=== PATIENT | female | born 1965 | race Caucasian/White ===

== ENCOUNTER → 2019-05-22 | Outpatient (CLI) | payer OTHER ==
[~2019-05-22] MED LIST: ERYT.5TO LEFTEYE; ESTR2 PO
== END | disposition home or self-care (01) ==
LOC: LAB 17:42 → LAB EV 17:42 → LAB SHORT 17:42
DX: N39.0 Urinary tract infection, site not specified (principal)
CPT/HCPCS: 87077; 87086; 87186

== ENCOUNTER → 2019-08-26 | Outpatient (CLI) | payer OTHER | END | disposition home or self-care (01) | LOC: LAB EV 14:52 → LAB SHORT 14:52 | DX: N39.0 Urinary tract infection, site not specified (principal) | CPT/HCPCS: 87077; 87086; 87186 ==

== ENCOUNTER → 2021-05-26 | Outpatient (CLI) | payer OTHER ==
[2021-05-26 19:37] LABS: BASOPHILS ABSOLUTE AUTO 0.03 K/mm3 (0.00-0.23); BASOPHILS PERCENT AUTO 1 % (0-2); EOSINOPHILS ABSOLUTE AUTO 0.16 K/mm3 (0.00-0.68); EOSINOPHILS PERCENT AUTO 3 % (0-6); Hematocrit 40.8 % (33.0-51.0); Hemoglobin 13.9 g/dL (11.5-16.0); IMMATURE GRAN ABSOLUTE AUTO 0.01 K/mm3 (0.00-0.10); IMMATURE GRAN PERCENT AUTO 0 % (0-1); LYMPHOCYTES ABSOLUTE AUTO 1.42 K/mm3 (0.84-5.20); LYMPHOCYTES PERCENT AUTO 30 % (21-46); MONOCYTES ABSOLUTE AUTO 0.28 K/mm3 (0.16-1.47); MONOCYTES PERCENT AUTO 6 % (4-13); Mean Corpuscular HGB 28.7 pg (26.0-34.0); Mean Corpuscular HGB Conc 34.1 g/dL (31.5-36.5); Mean Corpuscular Volume 84 fL (80-100); Mean Platelet Volume 9.8 fL (9.1-12.4); NEUTROPHILS ABSOLUTE AUTO 2.86 K/mm3 (1.96-9.15); NEUTROPHILS PERCENT AUTO 60 % (41-73); Platelet Count 246 K/mm3 (150-400); RDW Coefficient Variation 13.6 % (11.7-14.2); RDW Standard Deviation 41.8 fL (35.1-46.3); Red Blood Cell Count 4.85 M/mm3 (3.80-5.20); White Blood Cell Count 4.76 K/mm3 (4.00-11.30)
[2021-05-26 19:56] LABS: Alanine Aminotransfer (ALT/SGP 22 U/L (12-78); Albumin, Blood 3.8 g/dL (3.4-5.0); Albumin/Globulin Ratio 1.5 (0.8-1.8); Alk Phos 66 U/L (50-136); Anion Gap 6 mmol/L (6-16); Aspartate Aminotrans (AST/SGOT 15 U/L (12-37); Bilirubin, Total 0.6 mg/dL (0.1-1.0); Blood Urea Nitrogen 15 mg/dL (8-24); Bun/Creatinine Ratio 16.8 (12.0-20.0); CO2, Blood 23 mmol/L (21-32); Calcium, Blood 8.1 mg/dL (8.5-10.1); Chloride, Blood 115 mmol/L (98-108); Cholesterol 232 mg/dL (50-200); Globulin, Blood 2.6 g/dL (2.2-4.0); Glomerular Filtration Rate >60 (60-); Glucose, Blood 95 mg/dL (70-99); HDL Cholesterol 46 mg/dL (>39); LDL/HDL RATIO 3.4; Low Density Lipoprotein Chol 155 mg/dL (0-110); Potassium, Blood 3.8 mmol/L (3.5-5.5); Sodium, Blood 144 mmol/L (136-145); Total Protein, Blood 6.4 g/dL (6.4-8.2); Triglycerides 156 mg/dL (30-160); Very Low Density Lipoprot Chol 31 mg/dL (6-32)
== END ==
LOC: LAB 17:51 → LAB SHORT 17:51
PROVIDERS: Nurse Practitioner Family
DX: Z13.6 Encounter for screening for cardiovascular disorders (principal); Z13.29 Encounter for screening for other suspected endocrine disorder; Z13.0 Encounter for screening for diseases of the blood and blood-forming organs and certain disorders involving the immune mechanism; Z13.228 Encounter for screening for other metabolic disorders
CPT/HCPCS: 80053; 80061; 84443; 85025

== ENCOUNTER 2022-05-28 12:41 | Inpatient (IN) | payer OTHER ==
[~2022-05-28] VITALS: Ht 162.6 cm; Wt 75.2 kg
[~2022-05-28 12:41] MED LIST changes: +METPRE4DP PO
[2022-05-28 13:27] LABS: Albumin, Blood 3.2 g/dL (3.4-5.0); Bilirubin, Total 0.7 mg/dL (0.1-1.0); Bun/Creatinine Ratio 15.4 (12.0-20.0); Calcium, Blood 8.6 mg/dL (8.5-10.1); Creatinine, Blood 0.78 mg/dL (0.40-1.00); Globulin, Blood 3.3 g/dL (2.2-4.0); Potassium, Blood 3.3 mmol/L (3.5-5.5); Total Protein, Blood 6.5 g/dL (6.4-8.2)
[2022-05-28 13:35] LABS: BASOPHILS ABSOLUTE AUTO 0.04 K/mm3 (0.00-0.23); BASOPHILS PERCENT AUTO 0 % (0-2); EOSINOPHILS ABSOLUTE AUTO 0.12 K/mm3 (0.00-0.68); EOSINOPHILS PERCENT AUTO 1 % (0-6); Hematocrit 40.4 % (33.0-51.0); Hemoglobin 13.5 g/dL (11.5-16.0); IMMATURE GRAN ABSOLUTE AUTO 0.02 K/mm3 (0.00-0.10); IMMATURE GRAN PERCENT AUTO 0 % (0-1); LYMPHOCYTES ABSOLUTE AUTO 1.39 K/mm3 (0.84-5.20); LYMPHOCYTES PERCENT AUTO 13 % (21-46); MONOCYTES PERCENT AUTO 7 % (4-13); Mean Corpuscular HGB 27.4 pg (26.0-34.0); Mean Corpuscular HGB Conc 33.4 g/dL (31.5-36.5); Mean Corpuscular Volume 82 fL (80-100); Mean Platelet Volume 10.1 fL (9.1-12.4); NEUTROPHILS ABSOLUTE AUTO 8.45 K/mm3 (1.96-9.15); NEUTROPHILS PERCENT AUTO 79 % (41-73); Platelet Count 447 K/mm3 (150-400); RDW Coefficient Variation 13.4 % (11.7-14.2); RDW Standard Deviation 40.2 fL (35.1-46.3); Red Blood Cell Count 4.92 M/mm3 (3.80-5.20); White Blood Cell Count 10.72 K/mm3 (4.00-11.30)
[2022-05-28 15:47] LABS: Source, Urine Clean Catch
[2022-05-28 15:57] LABS: Bilirubin, Urine Neg (Neg); Blood, Urine 2+ (Neg); Color, Urine Yellow (P-Yellow); Glucose Qualitative, Urine Neg (Neg); Ketones, Urine 3+ (Neg); Leukocyte Esterase, Urine Neg (Neg); Nitrite, Urine Neg (Neg); Protein, Urine 2+ (Neg); Urobilinogen, Urine 1+ (Normal)
[2022-05-28 16:21] LABS: Amorphous Light (0-Heavy); Appearance, Urine Hazy (Clear); Bacteria Mod /hpf; Mucus Light (0-Heavy); Red Blood Cells, Urine 0-2 /hpf (0-2); Squamous Epithelial Cells Rare /hpf (Few); White Blood Cells, Urine 0-2 /hpf (0-5)
[2022-05-28 17:14] LABS: CPK Creatine Kinase 57 U/L (26-193)
[2022-05-28 17:23] LABS: Creatine Kinase MB <1.0 ng/mL (0.0-3.6); Creatine Kinase MB Index Unable to Calculate (0.0-4.0)
[2022-05-29 04:58] LABS: Calcium, Blood 8.9 mg/dL (8.5-10.1); Creatinine, Blood 0.79 mg/dL (0.40-1.00); Potassium, Blood 3.3 mmol/L (3.5-5.5)
--- NOTE | 2022-05-29 06:12 | NUR ---
END OF SHIFT MAINTAINED B/P OVERNIGHT, NO JVD, PT IRRITABLE AND WITHDRAWN BUT OTHERWISE NO ISSUES, NPO SINCE MIDNIGHT
--- NOTE | 2022-05-29 09:03 | NUR ---
0800 ASSESSMENT PT RESTING IN BED. ASSESSMENT CHARTED. PT AWAITING PROCEDURE AND IS NPO AT THIS TIME. ADDITIONAL QUESTIONS ANSWERED ABOUT PROCEDURE AND PLAN OF CARE FOR THE DAY. PT IS INDEPENDENT IN ROOM. HAT IN BATHROOM EMPTIED OF 500ML OF CLEAR YELLOW URINE. PT DENIES ANY ADDITIONAL NEEDS AT THIS TIME BUT IS REQUESTING REST ABLE. WILL WORK WITH OTHER STAFF TO GROUP CARE. CALL LIGHT IN REACH AND PT ENCOURAGED TO USE NEEDED.
--- NOTE | 2022-05-29 11:55 | NUR ---
PROCEDURE DR. ABRAMS TO BEDSIDE TO EVALUATE PT. ECHO COMPLETED AT BEDSIDE. DR. ABRAMS RETURNS TO COMPLETE CONSENT FOR PERICARDIALCENTISIS. PT VERBALIZES UNDERSTANDING OF TEACHING, ADDITIONAL QUESTIONS ADDRESSED BY PROVIDER, AND CONSENT SIGNED. HEART CENTER STAFF TO ROOM AND PT TO [facility] FOR PROCEDURE AT 1155.
[2022-05-29 13:33] LABS: Automated BF RBC Count 1.306 M/mm3 (0-0); Automated BF WBC Count 1.415 K/mm3 (0-999); RBC Count, Body Fluid 1306000 /mm3 (0-0)
[2022-05-29 13:41] LABS: Body Fluid WBC Count 1415 /mm3 (0-999)
[2022-05-29 13:48] LABS: Glucose, Body Fluid 81 mg/dL; Lactate Dehydrogenase, Body Fl 312 U/L; Protein, Body Fluid 4.8 g/dL
--- NOTE | 2022-05-29 14:00 | NUR ---
RETURN FROM PROCEDURE PT RETURNS FROM [facility] VIA BED. BEDSIDE REPORT FROM HEART CENTER STAFF. ADDITIONAL EDUCATION PROVIDED TO PT AND FAMILY UPON RETURN TO ROOM. PT WITH 1500ML OUT DURING PERICALCENTESIS AND WITH DRAIN IN PLACE. VS MONITORING IN PLACE. PT REPORTS IMPROVEMENT IN SOB, BUT DOES HAVE SOME MINOR PAIN IN CHEST WHERE DRAIN IS. WILL CONTINUE TO MONITOR CLOSELY.
[2022-05-29 14:37] LABS: pH, Body Fluid 7.9
[2022-05-29 14:55] LABS: Total Cell Count, Body Fluid 100
[2022-05-29 15:00] LABS: Appearance, Body Fluid Bloody (Clear); Color, Body Fluid Red (None-Yellow)
--- NOTE | 2022-05-29 17:57 | NUR ---
SHIFT SUMMARY PT CONTINUES TO DO WELL AFTER PROCEDURE. REPORTS IMPROVEMENT OF SOB. PT ABLE TO GET UP TO RESTROOM TO CLEANSE WITH WASH CLOTH AND SINK. LINEN AND CLOTHES CHANGED. PT WITH NO ADDITIONAL NEEDS. CALL LIGHT IN REACH.
--- NOTE | 2022-05-30 04:54 | NUR ---
SHIFT SUMMARY PT A&OX4, IND IN THE ROOM, HAS BEEN SR/ST 80'S-100'S ON TELE, AND IS ON 1-3L NC TO MAINTIAN SPO2>90%. THE PT HAS PAIN IN HER LUQ AT THE DRAIN SITE AND IT WORSENS WHEN SHE TAKES DEEP BREATHS. SHE HAS BEEN SHALLOW BREATHING. TO HELP WITH THE PAIN SHE HAS BEEN MEDICATED W/ TYLONAL PRN. PT REQUESTED AT THE BEGINNING OF THE SHIFT TO MINIMIZE ROUNDING AND LET HER SLEEP. SHE SLEPT MOST OF THE SHIFT, CALLS APPROPRIATELY, AND MAKES HER NEEDS KNOWN. HER BED IS IN A LOW POSITION AND HER CALL LIGHT IS IN REACH. WILL CONTINUE OT MONITOR UNTIL SHIFT REPORT IS GIVEN TO THE ONCOMING SHIFT RN. SEE NOTES FOR ANY UPDATES.
[2022-05-30 09:10] LABS: COMPLEMENT C3, SERUM 133 mg/dL (82-167)
[2022-05-30 09:35] LABS: Hematocrit 37.1 % (33.0-51.0); Hemoglobin 12.5 g/dL (11.5-16.0)
[2022-05-30 09:59] LABS: Mean Platelet Volume 10.1 fL (9.1-12.4); Platelet Count 312 K/mm3 (150-400)
[2022-05-30 18:11] LABS: ANTI-DSDNA ANTIBODIES 1 IU/mL (0-9); RNP ANTIBODIES <0.2 AI (0.0-0.9); SJOGREN'S ANTI-SS-A <0.2 AI (0.0-0.9); SJOGREN'S ANTI-SS-B <0.2 AI (0.0-0.9); SMITH ANTIBODIES <0.2 AI (0.0-0.9)
--- NOTE | 2022-05-30 18:36 | NUR ---
PERCARDIAL DRAIN REMOVED DURING THIS SHIFT WHEN CONFIRMED FROM ECHO AND DR ABRAMS THAT PERCARDIAL EFFUSION HAS DRAINED. PT WAS MEDCIATED THIS AM FOR REPORTED 10/10 PAIN, TREATED X1 WITH DILAUDID AND REQUIRED FOR FURTHER PAIN MEDICATION FOR THE DAY. PT STS ALSO THAT PAIN IS GREATLY IMPROVED WITH REMOVING THE DRAIN. PT IS A/O X4. REPORTS GOOD IMPROVEMENT IN WORK OF BREATHING. H&H DRAWN THIS SHIFT WHEN NOTED THAT ONE HAD NOT BEEN DRAWN WITH ROUTINE LABS THIS AM, H&H AND PLATELETS WNL. PT INDEPENDANT TO BATHROOM, DOES REPORT SOME INCONTENENCE WITH COUGHING, PADS PROVIDED. DENIES CP OR SOB. PT REMOVED FROM NASAL CANNULA ONCE PAIN WAS WELL CONTROLLED.
--- NOTE | 2022-05-31 05:26 | NUR ---
SHIFT SUMMARY PT A&OX4, IND IN THE ROOM, HAD A SHOWER THIS SHIFT, HER DRAIN SITE WAS REDRESSED W. A TEGADERM, AND SHE HAS BEEN SLEEPING MOST OF THE NIGHT. THE PT DESATURATED AGAIN DURING THE NIGHT TO 86% AND WAS PLACED BACK ON 1-3L NC TO MAINTAIN SP02 >90%. SHE DENIES SOB, ANGINA, AND PAIN. HER BED IS IN LOW, CALL LIGHT IS IN REACH, AND PT CALLS APPROPRIATELY. I WILL CONTINUE TO MONITOR UNTIL SHIFT REPORT IS GIVEN TO THE ONCOMING SHIFT RN. SEE NOTES FOR ANY UPDATES.
[2022-05-31 05:30] LABS: BASOPHILS ABSOLUTE AUTO 0.03 K/mm3 (0.00-0.23); BASOPHILS PERCENT AUTO 0 % (0-2); EOSINOPHILS ABSOLUTE AUTO 0.17 K/mm3 (0.00-0.68); EOSINOPHILS PERCENT AUTO 2 % (0-6); Hematocrit 38.5 % (33.0-51.0); Hemoglobin 12.6 g/dL (11.5-16.0); IMMATURE GRAN ABSOLUTE AUTO 0.01 K/mm3 (0.00-0.10); IMMATURE GRAN PERCENT AUTO 0 % (0-1); LYMPHOCYTES ABSOLUTE AUTO 1.33 K/mm3 (0.84-5.20); LYMPHOCYTES PERCENT AUTO 19 % (21-46); MONOCYTES ABSOLUTE AUTO 0.59 K/mm3 (0.16-1.47); MONOCYTES PERCENT AUTO 9 % (4-13); Mean Corpuscular HGB 26.7 pg (26.0-34.0); Mean Corpuscular HGB Conc 32.7 g/dL (31.5-36.5); Mean Corpuscular Volume 82 fL (80-100); Mean Platelet Volume 10.3 fL (9.1-12.4); NEUTROPHILS ABSOLUTE AUTO 4.81 K/mm3 (1.96-9.15); NEUTROPHILS PERCENT AUTO 69 % (41-73); Platelet Count 296 K/mm3 (150-400); RDW Coefficient Variation 13.2 % (11.7-14.2); RDW Standard Deviation 38.7 fL (35.1-46.3); Red Blood Cell Count 4.72 M/mm3 (3.80-5.20); White Blood Cell Count 6.94 K/mm3 (4.00-11.30)
[2022-05-31 06:14] LABS: Bun/Creatinine Ratio 14.2 (12.0-20.0); Calcium, Blood 7.9 mg/dL (8.5-10.1); Creatinine, Blood 0.77 mg/dL (0.40-1.00)
--- NOTE | 2022-05-31 09:10 | NUR ---
NURSING PCU DAYSHIFT: Assumed care of pt at approx 0700. A/O, very pleasant, cooperative w/care. Denies any pain/discomfort at rest, GODFREY during NOC treated w/tylenol. Ambulates independently and w/o difficulty. Skin intact, sterile dressing in place to L side r/t recent pericardial drain removal. Tele in place, NSR, no c/o CP/pressure, SBP 103, no noted edema. L/S cta t/o, O2 sat mid 90's on RA while awake, denies dyspnea, occ dry/LICENSED MASTER SOCIAL WORKER cough, continuous O2 monitoring in place. Abd SNT, BT+, voiding w/o difficulty per pt. PIV x1 s/l. No s/s of acute distress this a.m. Pt anticipating discharge home, awaiting rounding from PMD. Friend at bedside this a.m. for visit. Pt appears to be in good spirits. Denies any current needs or questions regarding plan of care, call light in reach, cont to monitor for changes.
[2022-05-31] MEDS ORDERED: COLCHICINE0.6 MG PO (12:31)
--- NOTE | 2022-05-31 12:37 | NUR ---
NURSING PCU DISCHARGE SUMMARY: No significant changes noted t/o the morning. Seen by PMD, discharge home d/o received. Pt verbalized understanding of all written and verbal discharge insructions. PIV dc'd w/cath intact. Rx's faxed to [facility] per pt request. No s/s of acute distress at this time. Pt request to ambulate independently from unit at time of discharge. Cont to monitor until dc completed.
== END 2022-05-31 12:59 | disposition home or self-care (01) | DRG 314 ==
LOC: ER 12:41 → PCU 12:42
PROVIDERS: Emergency Medicine; Internal Medicine; Internal Medicine Cardiovascular Disease; Physician Assistant; ADMIT Internal Medicine
PROC: 0W9D3ZZ Drainage of Pericardial Cavity, Percutaneous Approach (ICD-10-PCS; principal; 2022-05-29)
DX: I31.39 Other pericardial effusion (noninflammatory) (principal); J96.00 Acute respiratory failure, unspecified whether with hypoxia or hypercapnia; J90 Pleural effusion, not elsewhere classified; I31.4 Cardiac tamponade; E04.1 Nontoxic single thyroid nodule; R59.0 Localized enlarged lymph nodes; E87.6 Hypokalemia; R10.13 Epigastric pain; I27.21 Secondary pulmonary arterial hypertension; Z80.8 Family history of malignant neoplasm of other organs or systems; Z90.710 Acquired absence of both cervix and uterus; Z98.890 Other specified postprocedural states; Z85.42 Personal history of malignant neoplasm of other parts of uterus; Z79.899 Other long term (current) drug therapy
CPT/HCPCS: 33016; 36415; 71045; 71260; 76536; 76937; 80048; 80053; 81001; 82550; 82553; 82945; 83615; 83690; 83735; 83880; 83986; 84157; 84439; 84443; 84484; 85014; 85018; 85025; 85049; 85651; 86160; 86225; 86235; 87070; 87075; 87086; 87205; 87206; 88108; 88305; 88341; 88342; 89051; 93005; 93010; 93306; 93308; 93321; 96361; 96374; 99152; 99153; 99285-25; A9270; C1729; C1894; G0378; J0690; J1644; J1940; J2250; J3010; J7030; J7040; J7120; Q9967

== ENCOUNTER → 2022-06-02 | Outpatient (CLI) | payer OTHER ==
[~2022-06-02] MED LIST changes: +COLCHICINE0.6 MG PO
[2022-06-02 19:01] LABS: BASOPHILS ABSOLUTE AUTO 0.03 K/mm3 (0.00-0.23); BASOPHILS PERCENT AUTO 1 % (0-2); EOSINOPHILS ABSOLUTE AUTO 0.15 K/mm3 (0.00-0.68); EOSINOPHILS PERCENT AUTO 3 % (0-6); Hematocrit 42.9 % (33.0-51.0); Hemoglobin 14.2 g/dL (11.5-16.0); IMMATURE GRAN ABSOLUTE AUTO 0.01 K/mm3 (0.00-0.10); IMMATURE GRAN PERCENT AUTO 0 % (0-1); LYMPHOCYTES ABSOLUTE AUTO 1.33 K/mm3 (0.84-5.20); LYMPHOCYTES PERCENT AUTO 22 % (21-46); MONOCYTES ABSOLUTE AUTO 0.42 K/mm3 (0.16-1.47); MONOCYTES PERCENT AUTO 7 % (4-13); Mean Corpuscular HGB 26.6 pg (26.0-34.0); Mean Corpuscular HGB Conc 33.1 g/dL (31.5-36.5); Mean Corpuscular Volume 81 fL (80-100); Mean Platelet Volume 10.2 fL (9.1-12.4); NEUTROPHILS ABSOLUTE AUTO 3.99 K/mm3 (1.96-9.15); NEUTROPHILS PERCENT AUTO 67 % (41-73); Platelet Count 409 K/mm3 (150-400); RDW Coefficient Variation 13.2 % (11.7-14.2); Red Blood Cell Count 5.33 M/mm3 (3.80-5.20); White Blood Cell Count 5.93 K/mm3 (4.00-11.30)
[2022-06-02 19:51] LABS: Albumin/Globulin Ratio 0.8 (0.8-1.8); Bilirubin, Total 0.5 mg/dL (0.1-1.0); Bun/Creatinine Ratio 11.9 (12.0-20.0); Calcium, Blood 8.5 mg/dL (8.5-10.1); Creatinine, Blood 0.67 mg/dL (0.40-1.00); Globulin, Blood 3.6 g/dL (2.2-4.0); Potassium, Blood 3.5 mmol/L (3.5-5.5); Total Protein, Blood 6.6 g/dL (6.4-8.2)
== END | disposition home or self-care (01) ==
LOC: LAB SHORT 17:57 → LAB 17:57
PROVIDERS: Nurse Practitioner Family
DX: C80.1 Malignant (primary) neoplasm, unspecified (principal); I31.31 Malignant pericardial effusion in diseases classified elsewhere; E87.6 Hypokalemia; R06.00 Dyspnea, unspecified
CPT/HCPCS: 80053; 85025

== ENCOUNTER 2022-06-16 02:27 | Inpatient (IN) | payer OTHER ==
[~2022-06-16] VITALS: Ht 167.6 cm; Wt 74.0 kg
[2022-06-16 02:54] LABS: BASOPHILS ABSOLUTE AUTO 0.06 K/mm3 (0.00-0.23); BASOPHILS PERCENT AUTO 1 % (0-2); EOSINOPHILS ABSOLUTE AUTO 0.16 K/mm3 (0.00-0.68); EOSINOPHILS PERCENT AUTO 2 % (0-6); Hematocrit 39.4 % (33.0-51.0); Hemoglobin 12.9 g/dL (11.5-16.0); IMMATURE GRAN ABSOLUTE AUTO 0.02 K/mm3 (0.00-0.10); IMMATURE GRAN PERCENT AUTO 0 % (0-1); LYMPHOCYTES ABSOLUTE AUTO 2.02 K/mm3 (0.84-5.20); LYMPHOCYTES PERCENT AUTO 23 % (21-46); MONOCYTES ABSOLUTE AUTO 0.57 K/mm3 (0.16-1.47); MONOCYTES PERCENT AUTO 7 % (4-13); Mean Corpuscular HGB 26.1 pg (26.0-34.0); Mean Corpuscular HGB Conc 32.7 g/dL (31.5-36.5); Mean Corpuscular Volume 80 fL (80-100); NEUTROPHILS ABSOLUTE AUTO 5.84 K/mm3 (1.96-9.15); NEUTROPHILS PERCENT AUTO 67 % (41-73); Platelet Count 303 K/mm3 (150-400); RDW Coefficient Variation 13.3 % (11.7-14.2); RDW Standard Deviation 37.6 fL (35.1-46.3); Red Blood Cell Count 4.95 M/mm3 (3.80-5.20); White Blood Cell Count 8.67 K/mm3 (4.00-11.30)
[2022-06-16 03:13] LABS: Albumin, Blood 3.5 g/dL (3.4-5.0); Albumin/Globulin Ratio 1.2 (0.8-1.8); Bilirubin, Total 0.7 mg/dL (0.1-1.0); Bun/Creatinine Ratio 15.2 (12.0-20.0); C-REACTIVE PROTEIN, EXT RANGE 3.41 mg/dL (0.000-0.300); Calcium, Blood 8.9 mg/dL (8.5-10.1); Creatinine, Blood 0.73 mg/dL (0.40-1.00); Potassium, Blood 3.6 mmol/L (3.5-5.5); Total Protein, Blood 6.5 g/dL (6.4-8.2)
[2022-06-16 03:54] LABS: Influenza A, PCR NEGATIVE (NEGATIVE); Influenza B, PCR NEGATIVE (NEGATIVE); Resp Syncytial Virus, PCR NEGATIVE (NEGATIVE); SARS-Cov-2 (COVID-19) PCR, MMC NEGATIVE (NEGATIVE)
[2022-06-16] MEDS ORDERED: ESTRADIOL1 M1 (06:13)
--- NOTE | 2022-06-16 06:48 | NUR ---
ADMISSION PT ADMITTED TO PCU 14, SHE IS A&O X4, ON RA, SPO2 >93%, SINUS TACH @ 113 BMP, PT WALKED FROM THE ER BED IN HALLWAY TO HER BED PER HER REQUEST, GAIT STEADY, SBA, SOB NOTED WITH ACTIVITY. INTIAL ADMISSION COMPLETED, TELE BOX IN PLACE, CALL LIGHT & EMESIS BAG PROVIDED. WCTM & REPORT TO ONCOMING RN.
[2022-06-16 07:23] LABS: BASOPHILS ABSOLUTE AUTO 0.04 K/mm3 (0.00-0.23); BASOPHILS PERCENT AUTO 1 % (0-2); EOSINOPHILS ABSOLUTE AUTO 0.11 K/mm3 (0.00-0.68); EOSINOPHILS PERCENT AUTO 2 % (0-6); Hematocrit 36.8 % (33.0-51.0); Hemoglobin 12.3 g/dL (11.5-16.0); IMMATURE GRAN ABSOLUTE AUTO 0.02 K/mm3 (0.00-0.10); IMMATURE GRAN PERCENT AUTO 0 % (0-1); LYMPHOCYTES ABSOLUTE AUTO 1.44 K/mm3 (0.84-5.20); LYMPHOCYTES PERCENT AUTO 24 % (21-46); MONOCYTES ABSOLUTE AUTO 0.41 K/mm3 (0.16-1.47); MONOCYTES PERCENT AUTO 7 % (4-13); Mean Corpuscular HGB 26.6 pg (26.0-34.0); Mean Corpuscular HGB Conc 33.4 g/dL (31.5-36.5); Mean Corpuscular Volume 80 fL (80-100); Mean Platelet Volume 9.9 fL (9.1-12.4); NEUTROPHILS ABSOLUTE AUTO 3.93 K/mm3 (1.96-9.15); NEUTROPHILS PERCENT AUTO 66 % (41-73); Platelet Count 232 K/mm3 (150-400); RDW Coefficient Variation 13.4 % (11.7-14.2); RDW Standard Deviation 38.1 fL (35.1-46.3); Red Blood Cell Count 4.63 M/mm3 (3.80-5.20); White Blood Cell Count 5.95 K/mm3 (4.00-11.30)
[2022-06-16 07:51] LABS: Bun/Creatinine Ratio 13.6 (12.0-20.0); Calcium, Blood 8.2 mg/dL (8.5-10.1); Creatinine, Blood 0.66 mg/dL (0.40-1.00); Potassium, Blood 3.4 mmol/L (3.5-5.5)
--- NOTE | 2022-06-16 15:44 | NUR ---
UPDATE PT REMAINS ALERT AND ORIENTED. VS STABLE. PT INDEPENDENT IN ROOM. REPORT GIVEN TO CAMILA PETTY TO ASSUME CARE
--- NOTE | 2022-06-16 17:25 | NUR ---
MET WITH PT AND PT DTR IN ROOM. PT IS SITTING UPRIGHT IN BED, ALERT, COOPERATIVE AND PLEASANT. PT DENIES SOB AND REPORTS SHE IS TO BE DCD TOMORROW. PT ADMITS THAT SHE HERE A FEW DAYS AGO FOR SOB WITH PERICARDIAL EFFUSION, WAS DCD ON COLCHICINE AND STOPOPED TAKING IT AFTER A COUPLE OF DAYS R/T CONSTIPATION AND GI UPDET. PROVIDED EDUCATION TO TAKE MEDICATION WITH FOOD AND ITS UNLIKELY THAT THE MEDICATION WOULD CAUSE CONSTIPATION, BUT WILL F/UP WITH PHARMACIST. ADVISED PT THAT IF CONSTIPATION RETURNED, TO INCREASE FIBER IN HER DIET, DRINK LOTS OF FLUIDS AND USE A STOOL SOFTENER NEEDED. PT REPORTS SHE IS FEELING MUCH BETTER AND SPEAKING IN FULL SENTANCES. REPORTS SHE BECOME SOB IF SHE LAYS FLAT, ENCOURAGED HER TO SLEEP WITH HER HEAD ELEVATED. PT HAS A BED THAT SHE CAN ELEVATE THE FEET OR HEAD WHICH WILL BE PERFECT. PT HAS SUPPORT FROM HER DAUGHTER AFTER DC. CONSULTED WITH PHARMACIST, SHE REPORTS CONSTIPATION IS UNLIKELY FROM THE COLCHICINE AND TO TREAT SYMPTOMS.
[2022-06-17 04:49] LABS: Calcium, Blood 8.3 mg/dL (8.5-10.1); Creatinine, Blood 0.74 mg/dL (0.40-1.00); Potassium, Blood 3.6 mmol/L (3.5-5.5)
[2022-06-17] MEDS ORDERED: IBUP800 PO (12:25)
[2022-06-17] MEDS ORDERED: PANT40 PO (12:26)
--- NOTE | 2022-06-17 12:52 | NUR ---
PT DISCHARGE TO HOME WITH DISCHARGE ORDERS, PRESCRIPTION SENT TO [facility] ALSO GAVE INSTRUCTIONS ON HOW TO USE [facility] VIA PHONE. JADEN AT THE BEDSIDE WAS ABLE TO TALK TO THERMODYNAMICS ENGINEER AND HOSPITALIST ABOUT THE PT RECOMMENDED TO FF-UP WITH PCP AND GET ABD CT SCAN DONE OUTPATIENT. DISCHARGE INSTRUCTIONS AND NEW MEDICATIONS DISCLOSED WITH BOTH PT AND THE DAUGHTER BOTH VERNALIZED UNDERSTANDING. ALL BELONGINGS SENT WITH THE PT, PT AMBULATORY AND INDEPENDENT UPON DISCHARGE. NO OTHER ISSUES ENCOUNTERED PRIOR TO DISCHARGE.
== END 2022-06-17 12:47 | disposition home or self-care (01) | DRG 315 ==
LOC: ER 02:27 → PCU 04:53
PROVIDERS: Emergency Medicine; Family Medicine; Student in an Organized Health Care Education/Training Program; ADMIT Internal Medicine
DX: I31.39 Other pericardial effusion (noninflammatory) (principal); J90 Pleural effusion, not elsewhere classified; E04.1 Nontoxic single thyroid nodule; R12 Heartburn; Z20.822 Contact with and (suspected) exposure to COVID-19; Z79.899 Other long term (current) drug therapy; Z98.890 Other specified postprocedural states; Z90.710 Acquired absence of both cervix and uterus
CPT/HCPCS: 0241U; 36415; 71045; 71260; 80048; 80053; 83880; 84484; 85025; 85651; 86140; 93005; 93010; 93308; 93321; 94760; 99285-25; A9270; Q9967

== ENCOUNTER 2022-06-26 03:56 | Emergency (ER) | payer OTHER ==
[~2022-06-26] VITALS: Ht 160 cm; Wt 68.0 kg
[~2022-06-26 03:56] MED LIST changes: +ESTRADIOL1 M1; +IBUP800 PO; +PANT40 PO
[2022-06-26 04:36] LABS: BASOPHILS ABSOLUTE AUTO 0.06 K/mm3 (0.00-0.23); BASOPHILS PERCENT AUTO 1 % (0-2); EOSINOPHILS ABSOLUTE AUTO 0.18 K/mm3 (0.00-0.68); EOSINOPHILS PERCENT AUTO 2 % (0-6); Hematocrit 39.8 % (33.0-51.0); Hemoglobin 13.2 g/dL (11.5-16.0); IMMATURE GRAN ABSOLUTE AUTO 0.03 K/mm3 (0.00-0.10); IMMATURE GRAN PERCENT AUTO 0 % (0-1); LYMPHOCYTES ABSOLUTE AUTO 2.23 K/mm3 (0.84-5.20); LYMPHOCYTES PERCENT AUTO 22 % (21-46); MONOCYTES ABSOLUTE AUTO 0.84 K/mm3 (0.16-1.47); MONOCYTES PERCENT AUTO 8 % (4-13); Mean Corpuscular HGB 26.1 pg (26.0-34.0); Mean Corpuscular HGB Conc 33.2 g/dL (31.5-36.5); Mean Corpuscular Volume 79 fL (80-100); Mean Platelet Volume 10.1 fL (9.1-12.4); NEUTROPHILS ABSOLUTE AUTO 6.96 K/mm3 (1.96-9.15); NEUTROPHILS PERCENT AUTO 68 % (41-73); Platelet Count 356 K/mm3 (150-400); RDW Standard Deviation 39.7 fL (35.1-46.3); Red Blood Cell Count 5.05 M/mm3 (3.80-5.20)
[2022-06-26 04:56] LABS: Albumin, Blood 3.5 g/dL (3.4-5.0); Albumin/Globulin Ratio 1.2 (0.8-1.8); Bilirubin, Total 0.6 mg/dL (0.1-1.0); Bun/Creatinine Ratio 19.4 (12.0-20.0); Calcium, Blood 8.8 mg/dL (8.5-10.1); Creatinine, Blood 0.82 mg/dL (0.40-1.00); Potassium, Blood 3.2 mmol/L (3.5-5.5); Total Protein, Blood 6.5 g/dL (6.4-8.2)
== END 2022-06-26 14:45 | disposition short-term general hospital (02) ==
LOC: ER 03:56
PROVIDERS: Emergency Medicine
DX: I31.39 Other pericardial effusion (noninflammatory) (principal); R00.0 Tachycardia, unspecified; Z79.899 Other long term (current) drug therapy
CPT/HCPCS: 36415; 71045; 80053; 83690; 83880; 84484; 85025; 93005; 93010; 93308; 93321; A9270; C9113; J1885